=== PATIENT | male | born 1960 | race Caucasian/White ===

== ENCOUNTER → 2019-02-24 | Outpatient (CLI) | payer OTHER ==
[2017-11-14 10:27] VITALS: BP 114/74
[~2019-02-24] MED LIST: SIMV20TA3 PO; TIZA4TAB PO
--- NOTE | 2019-02-24 10:49 | PAIN ---
DATE OF SERVICE: 02/24/2019 INITIAL CONSULTATION FOR PAIN CLINIC CHIEF COMPLAINT: Low back and left lower extremity pain. HISTORY OF PRESENT ILLNESS: This is a 58-year-old male who presents with history of pain in the low back, left lower extremity for about 2 years, increasing gradually. He had surgery back in [address] Sanchez who had recently assessed him and referred him on for nonsurgical options. The patient reports the pain in the low back radiating to the posterior gluteus, posterior thigh, posterior calf into the ankle and foot at times but not into the toes. The patient reports it is becoming more constant, sharp, shooting, radiating in the left leg, changes during the day, worse with activity, standing, walking, changing positions, waking him from sleep at least 3-4 times at night, does not affect his bowel or bladder control but does affect his ability to walk at times and left leg fatigues very easily but is not using any assistive devices. The patient reports it does not slowing him down and he is just working through the pain. The patient reports he has had physical therapy as recently as 2017. Also, doing exercises on his own and continues to do those as well. The patient is taking diclofenac as well as Zantac, both of which are helping pain to a moderate extent by about 40%. The patient reports no loss of motor function but significant fatigability in the left leg. The patient's disability rate from 0-10, 10 being the worst, is a 5 with family home responsibilities, recreation, social activity, occupation and sexual behavior, 3 with self-care and 3 with life support activities. The patient did have MRI scan of the lumbar spine showing L4-L5 moderate bilateral facet degenerative hypertrophic change. Also, mild bilateral foraminal extraforaminal disk bulging endplate osteophyte formation with possible foraminal L4 nerve root impingement bilaterally. L5-S1 shows marked left and mild right facet degenerative hypertrophic changes, moderate left foraminal stenosis with possible left foraminal L5 nerve root impingement progressed when compared to prior study. The patient reports no complete loss of function, again significant fatigability with the left leg with activity, standing and walking, especially better with sitting or lying down. PAST MEDICAL HISTORY: Significant for hearing loss and arthritis. PAST SURGICAL HISTORY: Previous surgeries include lumbar laminectomy in 2014, carpal tunnel repair in 2005 and left knee surgery in 1989. CURRENT MEDICATIONS: Include tizanidine, simvastatin, diclofenac and Zantac. ALLERGIES: The patient has no known drug allergies. FAMILY HISTORY: Significant for no major medical problems or conditions that he is aware of. SOCIAL HISTORY: Shows the patient drinks alcohol about 20 beers per week. Does not smoke, does not use any illegal, illicit or recreational drugs. He is and lives with his spouse, lives locally in [place], [place]. REVIEW OF SYSTEMS: The patient's review of systems is positive for those items mentioned in history of present illness. All systems reviewed and otherwise negative. It is complete, full and well documented on the patient's chart. PHYSICAL EXAMINATION: VITAL SIGNS: The patient's blood pressure 126/89, pulse 75, respirations 18 and temperature 98.0 degrees Fahrenheit. Height is 5 feet 11 inches and weight is 238 pounds. GENERAL: The patient is awake, alert, oriented, appropriate and very pleasant demeanor. HEENT: Head is normocephalic and atraumatic. Extraocular movements are intact and symmetrical. Oral cavity, mucous membranes are moist and pink. Dentition is intact. NECK: Shows anterior throat supple without palpable lymphadenopathy noted. Swallow reflex symmetrical. CHEST: Shows normal on inspection. Breath sounds clear to auscultation bilaterally. HEART: Shows S1 and S2 clear. ABDOMEN: Soft, obese, nontender and nondistended. BACK: Shows spine grossly in the midline, normal-appearing cervical lordotic curvature and thoracic kyphotic curvature, minor flattening of the lumbar lordotic curvature with well-healed surgical scar noted. Lumbar paraspinous muscle shows symmetrical on inspection, on palpation shows some moderate tenderness diffusely but only diffusely without radiation bilaterally and diffusely throughout the upper, middle and lower distribution of the paraspinous muscles. The patient has good rotational movement that is the lumbar spine, both laterally as well as extension and flexion without significant increase in pain. EXTREMITIES: Lower extremities show deep tendon reflexes at 2+ patellar, 1+ tendo-calcaneus tendons. Motor exam is strong with 5/5 dorsiflexion, extension, quadriceps and hamstring flexion and are symmetrical. Peripheral pulses are 1+ posterior tibia. No peripheral edema is noted bilaterally. Lower extremities are warm and dry to touch, equal in color and appearance. The patient's skin shows warm and dry, good turgor. No edema. No sores, rashes or bruising. The patient is able to stand, stand on his toes without difficulty or loss of balance, walks with normal appearing gait for short distance in the office today, not using any assistive devices. IMPRESSION: 1. This is a 58-year-old male with approximate 2-year history of increasing pain in the low back, left lower extremity in a radicular fashion following an L5-S1 dermatomal distribution. 2. Lumbar MRI scan as noted. 3. Arthritis. 4. Previous lumbar surgery. PLAN: Options were discussed with the patient including conservative medical management, continued physical therapy, interventional techniques and he is doing physical therapy and traction strengthening exercises on his own that has been for almost 2 years. We discussed a lumbar epidural steroid injection. The patient would like to try this and very interested and we will make the arrangements with the patient. We described the procedure using description as well as anatomical models to describe the procedure. The patient will follow up in approximately one week. We will plan on lumbar epidural steroid injection at that time, L5-S1 level on the left side for L5-S1 radicular pain on the left as well. In the meantime, the patient will continue with stretching and strengthening exercises and also taking diclofenac as prescribed. HANG GAYLE MD DR: JEN/dahlia JOB#: [id number] / [id number]
== END | disposition home or self-care (01) ==
LOC: PNCL 08:19
PROVIDERS: ATTEND Anesthesiology
DX: M54.5 Low back pain (principal); M79.605 Pain in left leg; M19.90 Unspecified osteoarthritis, unspecified site; H91.90 Unspecified hearing loss, unspecified ear; Z79.899 Other long term (current) drug therapy; Z79.02 Long term (current) use of antithrombotics/antiplatelets; Z72.89 Other problems related to lifestyle
CPT/HCPCS: G0463

== ENCOUNTER → 2019-03-10 | Outpatient (CLI) | payer OTHER ==
[2017-11-14 10:27] VITALS: BP 114/74
[~2019-03-10] MED LIST changes: +IOHEXOL 180 MG/ML 10 ML VIAL. ONE; +methylPREDNISolone ACETATE 40 MG/ML VIAL. ONE; +methylPREDNISolone ACETATE 80 MG/ML VIAL. ONE
--- NOTE | 2019-03-10 16:13 | PAIN ---
DATE OF SERVICE: 03/10/2019 PROGRESS NOTE FOR PAIN CLINIC DIAGNOSES: Lumbar radiculopathy with lumbar degenerative disk disease and post-lumbar laminectomy syndrome. HISTORY OF PRESENT ILLNESS: The patient is a 59-year-old male who returns for followup status post previous evaluation and preauthorization for lumbar epidural steroid injection. The patient reports still significant pain in low back, left lower extremity, posterior gluteus, posterior thigh, posterior calf, worse with walking, standing, change in positions. No significant change since last visit. He has not had any procedures performed yet. He would like to proceed with that today. The patient reports it awakes him from sleep about every 5-6 hours, does not cause any overt muscular loss, but significant fatigue in the left lower extremity. The patient reports it is sharp, dull, shooting in the back and then shooting into the leg, becoming more constant. The patient rates it has a 7 on a scale of 10 at its worst over the past week, 5 on average, 4 at its least and is a 5 today. The patient reports no new motor or sensory deficits. No new bowel or bladder incontinence or other complaints. PHYSICAL EXAMINATION: VITAL SIGNS: The patient's blood pressure is 125/81, pulse 76, respirations 18, temperature 97.8 degrees Fahrenheit, height is 5 feet 11 inches and weight is 235 pounds. GENERAL: The patient is awake, alert, oriented, appropriate, very pleasant demeanor. HEENT: Shows normocephalic, atraumatic. Extraocular movements intact and symmetrical. Oral cavity: Mucous membranes moist and pink. Dentition is intact. NECK: Shows anterior throat supple without palpable lymphadenopathy noted. Swallow reflex symmetrical. CHEST: Shows normal on inspection. Breath sounds clear to auscultation bilaterally. HEART: Shows S1, S2 clear. No murmurs auscultated. ABDOMEN: Soft, nontender, nondistended. No palpable organomegaly is noted. No rebound or guarding demonstrated. BACK: Shows spine grossly in the midline. Normal appearing thoracic kyphosis and lumbar lordotic curvature. Lumbar paraspinous muscle shows symmetrical on inspection. On palpation shows some moderate tenderness diffusely with well-healed surgical scar again noted. No radiation of pain demonstrated. The patient shows good rotational motion of the lumbar spine both laterally as well as extension and flexion without difficulty. EXTREMITIES: The patient's lower extremities show deep tendon reflexes at 2+ in the patellar, 1+ tendo-calcaneus tendons. Motor exam is strong with 5/5 dorsiflexion, extension, quadriceps and hamstring flexion and equal. Peripheral pulses are 1+ posterior tibial. No peripheral edema is noted bilaterally. PLAN: Options were discussed with the patient. The patient's old chart was reviewed as his current medication regimen updated. Current review of systems is updated today as well. We will proceed with a lumbar epidural steroid injection today with fluoroscopic guidance. Risks were again discussed including, but not limited to bleeding, infection, possibility of epidural hematoma, subsequent neurological compromise, dural puncture, headaches, spinal cord and/or nerve damage, side effects of steroid medication and poor results regarding pain control. The patient understands and wished to proceed. The patient will return to clinic in approximately 2 weeks for followup. He was counseled on return appointment, activity level and side effects to be aware of. DIAGNOSES: Lumbar radiculopathy with lumbar degenerative disk disease and lumbar post-laminectomy syndrome. PROCEDURE: Lumbar epidural steroid injection, translaminar approach at the L5-S1 level using C-arm fluoroscopic guidance under sterile prep and drape using local anesthetic. MEDICATION INJECTED: A total of 120 mg Depo-Medrol plus 10 mL of preservative-free normal saline and 2 mL of Isovue for contrast. CONDITION AT DISCHARGE: Stable. The patient tolerated the procedure well, had no complications. HANG GAYLE MD DR: JEN/dahlia JOB#: [id number] / [id number]
== END ==
LOC: PNCL 08:37
PROVIDERS: ATTEND Anesthesiology
DX: M51.16 Intervertebral disc disorders with radiculopathy, lumbar region (principal); M96.1 Postlaminectomy syndrome, not elsewhere classified; M54.5 Low back pain
CPT/HCPCS: 62323; J1030; J1040; Q9965

== ENCOUNTER → 2019-04-05 | Outpatient (CLI) | payer OTHER ==
[2017-11-14 10:27] VITALS: BP 114/74
[~2019-04-05] MED LIST changes: -IOHEXOL 180 MG/ML 10 ML VIAL. ONE; -methylPREDNISolone ACETATE 40 MG/ML VIAL. ONE; -methylPREDNISolone ACETATE 80 MG/ML VIAL. ONE
--- NOTE | 2019-04-05 09:07 | PAIN ---
DATE OF SERVICE: 04/05/2019 DIAGNOSES: Lumbar radiculopathy with lumbar degenerative disk disease and post-lumbar laminectomy syndrome. HISTORY OF PRESENT ILLNESS: The patient is a 59-year-old male who returns for followup status post lumbar epidural steroid injection x 1. The patient reports about 60% improvement initially after the first 2 weeks, now is about 50% improvement overall. The patient reports still significant increased ability to do activities, increasing his walking, doing work activities, household activities, sleeping better at night. The patient reports still awakens him from sleep, but only about every 6 hours. The patient reports pain in the low back, left lower extremity radiating in the posterior gluteus, posterior thigh, posterior calf, worse with walking, standing, changing positions, better with sitting or lying down. Again, significantly decreased, but the pain is returning. The patient reports it is a 7 on a scale of 10 at its worst over the past week, 5 on average and 3 at its least and is a 3 today. The patient reports it is aching, sharp, shooting, tingling in some regards as well in the left leg only. No symptoms on the right side. The patient reports no new motor or sensory deficits, no new bowel or bladder incontinence or other complaints. PHYSICAL EXAMINATION: VITAL SIGNS: The patient's blood pressure 139/84, pulse 66, respirations 18, temperature 97.8 degrees Fahrenheit. Height is 5 feet 11 inches, weighs 238 pounds. GENERAL: The patient is awake, alert, oriented, appropriate, very pleasant demeanor. HEENT: Head is normocephalic, atraumatic. Extraocular movements intact and symmetrical. Oral cavity: Mucous membranes are moist and pink. Dentition is intact. NECK: Shows anterior throat supple without palpable lymphadenopathy noted. Swallow reflex symmetrical. CHEST: Shows normal with inspection. Breath sounds clear to auscultation bilaterally. HEART: Shows S1, S2 clear. No murmurs auscultated. ABDOMEN: Soft, nontender, nondistended. MUSCULOSKELETAL: Back shows spine grossly in the midline, some flattening of lumbar lordotic curvature. Well-healed surgical scars noted. Lumbar paraspinous muscle shows symmetrical on inspection and palpation. Some moderate tenderness diffusely, but only diffusely without significant radiation. The patient has good rotational motion of lumbar spine, both laterally as well as extension and flexion. Lower extremities show deep tendon reflexes 2+ in the patellar, 1+ tendo-calcaneus tendons. Motor exam is strong with 5/5 with dorsiflexion, extension, quadriceps and hamstring flexion symmetrical. Peripheral pulses 1+ posterior tibial. No peripheral edema is noted bilaterally. Options were discussed with the patient. The patient's old chart was reviewed as his current medication regimen updated. Current review of systems updated today as well. We will preauthorize the patient for a second lumbar epidural steroid injection. The patient still has significant L5-S1 radicular pain in the left lower extremity. The patient will return for a second lumbar epidural steroid injection, translaminar approach at the L5-S1 level. The patient will continue stretching and strengthening exercises on his own to maintain activity as tolerated and continue walking daily as tolerated as well. The patient will return to clinic once preauthorization is obtained. We will plan on lumbar epidural steroid injection at that time. HANG GAYLE MD DR: JEN/dahlia JOB#: [id number] / [id number]
== END | disposition home or self-care (01) ==
LOC: PNCL 07:38
PROVIDERS: ATTEND Anesthesiology
DX: M51.16 Intervertebral disc disorders with radiculopathy, lumbar region (principal); M96.1 Postlaminectomy syndrome, not elsewhere classified
CPT/HCPCS: G0463

== ENCOUNTER → 2019-04-19 | Outpatient (CLI) | payer OTHER ==
[2017-11-14 10:27] VITALS: BP 114/74
[~2019-04-19] MED LIST changes: +IOHEXOL 180 MG/ML 10 ML VIAL. ONE; -TIZA4TAB PO; +TIZA4TAB2 PO; +methylPREDNISolone ACETATE 40 MG/ML VIAL. ONE; +methylPREDNISolone ACETATE 80 MG/ML VIAL. ONE
--- NOTE | 2019-04-19 08:36 | PAIN ---
DATE OF SERVICE: 04/19/2019 PROGRESS NOTE FOR PAIN CLINIC DIAGNOSES: Lumbar radiculopathy with lumbar degenerative disk disease and lumbar post-laminectomy syndrome. HISTORY OF PRESENT ILLNESS: The patient is a 59-year-old male who returns for followup status post lumbar epidural steroid injection x 1 about 50% improvement overall. The patient reports the pain is returning in the low back, left lower extremity, posterior gluteus, posterior thigh, posterior calf, worse with walking, standing, changing positions, better with sitting or lying down, does not awaken him from sleep at night. It is getting worse with time. The patient reports it is an 8 on a scale of 10 at its worst in the past week, 5 on average and 3 at its least and is a 3 today. The patient reports it is aching, sharp, tingling, radiating as noted. The patient reports no new motor or sensory deficits, no new bowel or bladder incontinence or other complaints. PHYSICAL EXAMINATION: VITAL SIGNS: The patient's blood pressure 126/86, pulse 84, respirations 18, temperature 98.2 degrees Fahrenheit, height is 5 feet 11 inches, weight is 237 pounds. GENERAL: The patient is awake, alert, oriented, appropriate, very pleasant demeanor. HEENT: Normocephalic, atraumatic. Extraocular movements are intact. NECK: symmetrical. Oral cavity: Mucous membranes moist and pink. Dentition intact. NECK: Shows anterior throat supple without palpable lymphadenopathy noted. CHEST: Shows normal on inspection. Breath sounds clear to auscultation bilaterally. HEART: Shows S1, S2 clear. No murmurs auscultated. ABDOMEN: Soft, nontender, nondistended. No palpable organomegaly is noted. No rebound or guarding demonstrated. BACK: Shows spine grossly in the midline. Normal appearing thoracic kyphosis and minor flattening of lumbar lordotic curvature. Well-healed surgical scar noted. Lumbar paraspinous muscle shows symmetrical on inspection, on palpation shows some moderate tenderness diffusely without radiation. The patient has good rotational motion of lumbar spine, both laterally as well as extension and flexion without significant difficulty. EXTREMITIES: Lower extremities show deep tendon reflexes 2+ in the patellar, 1+ tendo-calcaneus tendons. Motor exam is strong with 5/5 dorsiflexion, extension, quadriceps and hamstring flexion symmetrical. Peripheral pulses are 1+ posterior tibia. No peripheral edema is noted. Options were discussed with the patient. The patient's old chart was reviewed as his current medication regimen updated. Current review of systems updated today as well. We will proceed with a second in the series of lumbar epidural steroid injection today with fluoroscopic guidance. Risks were again discussed including, but not limited to bleeding, infection, possibility of epidural hematoma, subsequent neurologic compromise, dural puncture, headaches, spinal cord and/or nerve damage, side effects of steroid medication and poor results regarding pain control. The patient understands and wished to proceed. The patient will return to clinic in approximately 2 weeks for followup. He was counseled on return appointment, activity level and side effects to be aware of. DIAGNOSES: Lumbar radiculopathy with lumbar degenerative disk disease, post-lumbar laminectomy syndrome. PROCEDURE: Lumbar epidural steroid injection, translaminar approach L5-S1 level using C-arm fluoroscopic guidance under sterile prep and drape using local anesthetic. MEDICATION INJECTED: A total of 120 mg Depo-Medrol plus 10 mL of preservative-free normal saline and 2 mL of contrast. CONDITION AT DISCHARGE: Stable. The patient tolerated procedure well, had no complications. HANG GAYLE MD DR: JEN/dahlia JOB#: [id number] / [id number]
== END ==
LOC: PNCL 07:38
PROVIDERS: ATTEND Anesthesiology
DX: M51.16 Intervertebral disc disorders with radiculopathy, lumbar region (principal); M96.1 Postlaminectomy syndrome, not elsewhere classified
CPT/HCPCS: 62323; J1030; J1040; Q9965